=== PATIENT | female | born 1960 | race Caucasian/White ===

== ENCOUNTER → 2017-02-03 | Outpatient (CLI) | payer OTHER ==
--- NOTE | 2017-02-03 11:25 | REP ---
Chest two views HISTORY: Cough Comparison: None Calcified granuloma are present in the lungs. The heart is normal in size. The pulmonary vasculature is normal in appearance. The bony structure is intact. IMPRESSION: Old granulomatous disease.
== END ==
LOC: M CLY 10:35
PROVIDERS: ATTEND Family Medicine
DX: R05 Cough (principal); R07.9 Chest pain, unspecified; J98.4 Other disorders of lung

== ENCOUNTER → 2017-04-17 | Outpatient (REF) | payer MEDICAID ==
[2017-04-18 13:28] LABS: ALBUMIN 4.1 GM/DL (3.2-5.2); ALBUMIN/GLOBULIN RATIO 1.32 (1.00-1.93); BILIRUBIN,TOTAL 0.5 MG/DL (0.2-1.0); CALCIUM LEVEL 9.3 MG/DL (8.5-10.1); CREATININE FOR GFR 1.14 MG/DL (0.55-1.02); GLOMERULAR FILTRATION RATE 52.7 (>51); POTASSIUM SERUM 4.3 MEQ/L (3.5-5.1); TOTAL PROTEIN 7.2 GM/DL (6.4-8.2)
== END ==
LOC: M SFHCCLAY 14:11
PROVIDERS: ATTEND Family Medicine
DX: R73.01 Impaired fasting glucose (principal)

== ENCOUNTER → 2018-05-07 | Outpatient (REF) | payer OTHER ==
[2018-05-08 12:14] LABS: ALBUMIN 4.1 GM/DL (3.2-5.2); ALBUMIN/GLOBULIN RATIO 1.21 (1.00-1.93); ALKALINE PHOSPHATASE 86 U/L (45-117); ALT/SGPT 16 U/L (12-78); ANION GAP 5 MEQ/L (8-16); AST/SGOT 13 U/L (7-37); BILIRUBIN,TOTAL 0.5 MG/DL (0.2-1.0); BLOOD UREA NITROGEN 11 MG/DL (7-18); CALCIUM LEVEL 9.2 MG/DL (8.5-10.1); CARBON DIOXIDE LEVEL 30 MEQ/L (21-32); CHLORIDE LEVEL 107 MEQ/L (98-107); CREATININE FOR GFR 1.16 MG/DL (0.55-1.30); GLOMERULAR FILTRATION RATE 51.4 (>51); GLUCOSE, FASTING 110 MG/DL (70-100); POTASSIUM SERUM 4.8 MEQ/L (3.5-5.1); SODIUM LEVEL 142 MEQ/L (136-145); TOTAL PROTEIN 7.5 GM/DL (6.4-8.2)
[2018-05-08 13:27] LABS: ESTIMATED AVERAGE GLUCOSE 123 MG/DL (60-110); HEMOGLOBIN A1c 5.9 %
== END ==
LOC: M SFHCCLAY 14:56
DX: I10 Essential (primary) hypertension (principal)

== ENCOUNTER → 2018-09-08 | Outpatient (REF) | LOC: M SMT 13:02 | DX: Z02.71 Encounter for disability determination (principal) ==

== ENCOUNTER → 2018-11-23 | Outpatient (REF) | payer OTHER ==
[2018-11-24 11:27] LABS: ALBUMIN 4.1 GM/DL (3.2-5.2); BILIRUBIN,TOTAL 0.3 MG/DL (0.2-1.0); CHOLESTEROL RISK RATIO 4.666 (<5); CREATININE FOR GFR 1.15 MG/DL (0.55-1.30); GLOMERULAR FILTRATION RATE 51.8 (>51); POTASSIUM SERUM 4.4 MEQ/L (3.5-5.1); TOTAL PROTEIN 7.1 GM/DL (6.4-8.2)
[2018-11-24 11:56] LABS: HEMOGLOBIN A1c 5.8 %
== END ==
LOC: M SFHCCLAY 14:00
PROVIDERS: ATTEND Family Medicine
DX: E78.2 Mixed hyperlipidemia (principal); R73.01 Impaired fasting glucose

== ENCOUNTER → 2018-12-31 | Outpatient (REF) | payer OTHER ==
[2018-12-31 16:04] LABS: APPEARANCE, URINE HAZY (CLEAR); BACTERIA, URINE AUTO 1+ (NEGATIVE); BILIRUBIN, URINE AUTO NEGATIVE (NEGATIVE); BLOOD, URINE BLOOD 1+ (NEGATIVE); COLOR, URINE YELLOW (YELLOW); GLUCOSE, URINE (UA) AUTO NEGATIVE (NEGATIVE); KETONE, URINE AUTO NEGATIVE (NEGATIVE); LEUKOCYTE ESTERASE, URINE AUTO NEGATIVE (NEGATIVE); MUCUS, URINE SMALL (NEGATIVE); NITRITE, URINE AUTO NEGATIVE (NEGATIVE); PROTEIN, URINE AUTO NEGATIVE (NEGATIVE); RBC, URINE AUTO 2 /HPF (0-3); SPECIFIC GRAVITY URINE AUTO 1.013 (1.002-1.035); SQUAMOUS EPITHELIAL CELL UR AU 3 /HPF (0-6); UROBILINOGEN, URINE AUTO 0.2 mg/dL (0.0-2.0); WBC, URINE AUTO 0 /HPF (0-3)
[2018-12-31 16:05] LABS: BASO # 0.1 10^3/uL (0.0-0.2); BASO % 1.2 % (0.0-1.0); EOS # 0.4 10^3/uL (0.0-0.50); EOS % 4.8 % (0.0-3.0); HEMATOCRIT 44.2 % (36.0-47.0); HEMOGLOBIN 14.6 g/dl (12.0-15.5); LYMPH % 27.2 % (24.0-44.0); MEAN CORPUSCULAR HEMOGLOBIN 30.6 pg (27.0-33.0); MEAN CORPUSCULAR VOLUME 92.7 fl (80.0-96.0); MONO # 0.4 10^3/uL (0.0-0.8); NEUTROPHILS # 4.5 10^3/uL (1.8-7.7); NEUTROPHILS % 61.4 % (36.0-66.0); PLATELET COUNT, AUTOMATED 271 10^3/uL (150-450); RED BLOOD COUNT 4.77 10^6/uL (4.00-5.40); WHITE BLOOD COUNT 7.4 10^3/uL (4.0-10.0)
[2018-12-31 16:25] LABS: ERYTHROCYTE SEDIMENTATION RATE 16 mm/hr (0-30)
[2018-12-31 16:26] LABS: COMPLEMENT C3 123 MG/DL (90-180); COMPLEMENT C4 24 MG/DL (10-40)
[2019-01-02 14:38] LABS: ANTI DOUBLE STRAND-DNA AB 1 IU/mL (0-9); RNP ANTIBODY 0.6 AI (0.0-0.9); SMITHS ANTIBODY < 0.2 AI (0.0-0.9); SSA SJOGRENS A <0.2 AI (0.0-0.9); SSB SJOGRENS B <0.2 AI (0.0-0.9)
[2019-01-03 00:06] LABS: ANA (HEP2) Negative (.)
== END ==
LOC: M SFHCPLAZ 14:22
PROVIDERS: ATTEND Internal Medicine Rheumatology
DX: L93.0 Discoid lupus erythematosus (principal)

== ENCOUNTER → 2019-05-05 | Outpatient (REF) | payer OTHER | LOC: M SFHCPLAZ 17:00 | PROVIDERS: ATTEND Dermatology | DX: R21 Rash and other nonspecific skin eruption (principal) ==

== ENCOUNTER → 2019-06-14 | Outpatient (REF) | payer OTHER ==
[2019-06-15 11:41] LABS: ALBUMIN 4.1 GM/DL (3.2-5.2); BILIRUBIN,TOTAL 0.4 MG/DL (0.2-1.0); CALCIUM LEVEL 9.2 MG/DL (8.5-10.1); CREATININE FOR GFR 1.12 MG/DL (0.55-1.30); GLOMERULAR FILTRATION RATE 53.4 (>51); TOTAL PROTEIN 7.1 GM/DL (6.4-8.2)
[2019-06-15 12:05] LABS: HEMOGLOBIN A1c 6.1 %
== END ==
LOC: M SFHCCLAY 15:08
PROVIDERS: ATTEND Family Medicine
DX: I10 Essential (primary) hypertension (principal); E78.2 Mixed hyperlipidemia; R73.01 Impaired fasting glucose

== ENCOUNTER → 2019-10-15 | Outpatient (CLI) | payer OTHER ==
--- NOTE | 2019-10-15 18:26 | REP ---
REASON: Cough. COMPARISON: 02/03/2017 FINDINGS: The superior mediastinal structures are midline. The cardiac silhouette is unremarkable in size, shape, and position. The diaphragmatic surfaces of the lungs are regular, and the costophrenic angles are clear. The pulmonary fitch are clear. The imaged osseous structures are intact. IMPRESSION: There is no acute cardiopulmonary disease. No significant change from the prior exam. Electronically Signed by Moreno Escalera DO 10/18/2019 01:13 P
== END ==
LOC: M CLY 14:27
PROVIDERS: ATTEND Family Medicine
DX: R05 Cough (principal)

== ENCOUNTER 2020-09-05 16:37 | Inpatient (IN) | payer OTHER ==
[~2020-09-05] VITALS: Ht 167.6 cm; Wt 80.7 kg
[2020-09-05] MEDS ORDERED: LISI-538 PO ×3 (16:58→22:35)
[2020-09-05] MEDS ORDERED: ATOR1TAB21 PO ×2 (16:58→22:35)
[2020-09-05] MEDS ORDERED: PANT40TA29 PO (16:58)
[2020-09-05] MEDS ORDERED: ADVA230A INH ×2 (16:58→22:35)
[2020-09-05] MEDS ORDERED: TRAM50TA2 PO ×2 (16:58→22:35)
[2020-09-05] MEDS ORDERED: CYCL-707 PO ×2 (16:58→22:35)
[2020-09-05] MEDS ORDERED: ALBU8.5H INH (16:58)
--- NOTE | 2020-09-05 18:03 | REP ---
INDICATION: CHEST PAIN. COMPARISON: . TECHNIQUE: Single frontal portable view of the chest is performed. FINDINGS: No acute infiltrate is seen. Heart is not enlarged. There is mild calcification of the thoracic aorta. The mediastinal silhouette is otherwise unremarkable. A tiny calcified granuloma seen in the left upper lobe, unchanged. IMPRESSION: No acute pulmonary disease. <Electronically signed by Shashi Eason > 09/05/20 [id number]
[2020-09-05 18:29] LABS: BASO # 0.1 10^3/uL (0.0-0.2); EOS # 0.2 10^3/uL (0.0-0.5); EOS % 1.7 % (0.0-3.0); HEMATOCRIT 46.8 % (36.0-47.0); LYMPH # 1.5 10^3/uL (1.5-5.0); LYMPH % 15.9 % (24.0-44.0); MEAN CORPUSCULAR HEMOGLOBIN 29.4 pg (27.0-33.0); MEAN CORPUSCULAR HGB CONC 32.1 g/dl (32.0-36.5); MEAN CORPUSCULAR VOLUME 91.6 fl (80.0-96.0); MONO # 0.3 10^3/uL (0.0-0.8); MONO % 3.4 % (0.0-5.0); NEUTROPHILS # 7.3 10^3/uL (1.5-8.5); NEUTROPHILS % 77.6 % (36.0-66.0); PLATELET COUNT, AUTOMATED 299 10^3/uL (150-450); RED BLOOD COUNT 5.11 10^6/uL (4.00-5.40); WHITE BLOOD COUNT 9.4 10^3/uL (4.0-10.0)
[2020-09-05] MEDS ORDERED: CHLO125TA PO (18:43)
[2020-09-05] MEDS ORDERED: SPIR-10 PO (18:44)
[2020-09-05] MEDS ORDERED: FUROSEMIDE 40MG/4ML VIAL (J1940) IV ONE (18:45)
[2020-09-05] MEDS ORDERED: lisinopriL 20 MG TAB PO ONE (18:45)
--- NOTE | 2020-09-05 18:49 | REPVR ---
PROCEDURE INFORMATION: Exam: CT Head Without Contrast Exam date and time: 09/05/2020 6:19 PM Age: 60 years old Clinical indication: Pain; Headache; Additional info: COHEN w HTN TECHNIQUE: Imaging protocol: Computed tomography of the head without contrast. Radiation optimization: All CT scans at this facility use at least one of these dose optimization techniques: automated exposure control; mA and/or kV adjustment per patient size (includes targeted exams where dose is matched to clinical indication); or iterative reconstruction. COMPARISON: No relevant prior studies available. FINDINGS: Brain: Mild cerebral and cerebellar volume loss. No hemorrhage or edema seen. Cerebral ventricles: No ventriculomegaly. Bones/joints: Unremarkable. No acute fracture. Paranasal sinuses: Visualized sinuses are unremarkable. No fluid levels. Mastoid air cells: Visualized mastoid air cells are well aerated. Soft tissues: Unremarkable. IMPRESSION: No acute intracranial abnormality seen. Electronically signed by: Yaritza Cabrera On 09/05/2020 18:48:34 PM
[2020-09-05 18:55] LABS: ALBUMIN 4.6 GM/DL (3.2-5.2); ALT/SGPT 15 U/L (12-78); BILIRUBIN,DIRECT < 0.1 MG/DL (0.0-0.2); BILIRUBIN,TOTAL 0.3 MG/DL (0.2-1.0); FREE T4 1.18 NG/DL (0.76-1.46); TOTAL PROTEIN 8.2 GM/DL (6.4-8.2)
[2020-09-05] MEDS ORDERED: amLODIPine 10 MG TAB PO ONE (20:30)
[2020-09-05] MEDS ORDERED: diazePAM 2 MG TAB PO ONE (22:15)
[2020-09-05] MEDS ORDERED: DIAZ5TAB PO (22:35)
[2020-09-05] MEDS ORDERED: PROAAER10 INH (22:35)
[2020-09-05] MEDS ORDERED: PANT-23 PO (22:35)
[2020-09-05] MEDS ORDERED: CYCLOBENZAPRINE 10MG TABLET PO PRN (22:45)
[2020-09-05] MEDS ORDERED: traMADol 50 MG TAB PO PRN (22:45)
[2020-09-05] MEDS ORDERED: ALBUTEROL 90 MCG/ACT 8GM HFA INHALER INH PRN (22:45)
[2020-09-05] MEDS ORDERED: diazePAM 5 MG TAB PO PRN (22:45)
[2020-09-05] MEDS ORDERED: NICOTINE 21MG/24HR 1 EA TRANSDERMAL TD PRN (23:30)
--- NOTE | 2020-09-05 23:31 | HPEPDOC ---
[facility] Medical History & Physical Date of Admission Sep 05, 2020 Date of Service: Sep 05, 2020 Primary Care Physician: Zack Zapien Attending Physician: KATALINA ESCAMILLA MD History and Physical CHIEF COMPLAINT: Head pressure and elevated blood pressure HISTORY OF PRESENT ILLNESS: Patient is a 60-year-old female who presents to the emergency department after she checked her blood pressure earlier this morning and found to be elevated. Patient states that she was feeling ill over the past day and decided to take her blood pressure. Patient reports her blood pressure was over 190/110. She decided to come to the emergency department for further evaluation. Patient says that she's had some head pressure for last 5 days that had actually resolved prior to her coming to the emergency department. In the emergency department, patient's blood pressure was found to be quite elevated. Cardiology was contacted and advised that she begin her lisinopril as well as a dose of IV Lasix. Patient's blood pressure still remained elevated and cardiology was called back. Patient was given amlodipine 10 mg. Patient's blood pressure still did not respond and was still 190/110. Hospitalists were contacted for admission for further blood pressure management and workup. Patient says that she feels slightly better however, she was eating a bowl mac & cheese but said that she did not feel very hungry. Patient denies any nausea or any vomiting just feels like she has no appetite. Patient denies any headache, blurry vision, dizziness, or any weakness or numbness in her limbs. PAST MEDICAL HISTORY: 1. Hypertension. 2. Anxiety. 3. GERD. 4. COPD 5. Discoid lupus 6. Hyperlipidemia PAST SURGICAL HISTORY: 1. Transvaginal hysterectomy. SOCIAL HISTORY: Patient admits to smoking about 15 cigarettes a day. Patient used to smoke 2 packs of cigarettes a day but has steadily decreased that number. Patient denies any drinking or illicit drug use. Patient does have a very remote history of IV drug use and was diagnosed with hepatitis C which she says was treated. Patient currently lives at home with her son and grandkids. 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 ALLERGIES: Please see below. REVIEW OF SYSTEMS: General: Patient denies fevers HEENT: Patient denies headaches Cardiovascular: Patient denies chest pain Respiratory: Patient denies shortness of breath, cough GI: Patient denies abdominal pain, nausea, vomiting, diarrhea : Patient denies increased frequency or pain with urination Extremities: Patient denies swelling or pain in extremities Neurological: Patient denies numbness or tingling in legs Skin: Patient denies any new rashes or lesions. Hematologic: Patient denies any easy bruising. Lymphatic: Patient denies any lumps lumps or bumps in neck, axilla, or groin HOME MEDICATIONS: Please see below. PHYSICAL EXAMINATION: VITAL SIGNS: See below General: Alert and oriented female patient who was sitting up on the emergency department stretcher when I walked into the room. Patient did not appear to be in any acute distress HEENT: Normocephalic, atraumatic, moist mucous membranes. Neck: No lymphadenopathy or thyromegaly Cardiac: Regular rate and rhythm, no murmurs, normal S1, normal S2 Pulm: Clear to auscultation bilaterally. No wheezes, rhonchi, rales Abd: Nondistended, nontender to palpation, normal bowel sounds Ext: No edema bilateral lower extremities Skin: Patient does have some hyperkeratotic skin in the upper thoracic area as well as some dry skin with excoriations at the thoracic lumbar junction. No other rashes were seen. LABORATORY DATA: See below. IMAGING: A chest x-ray performed on 09/05/2020 was reported to show no acute pulmonary disease. A CT the head performed without contrast on 09/05/2020 was reported to show no a cute intracranial abnormality seen. MICROBIOLOGY: Please see below. ASSESSMENT: Patient is a 60-year-old female who presented to the emergency department after taking her blood pressure this morning finding it to be elevated. Patient does not appear to have any signs of end organ damage at this time however, her blood pressure still remained elevated after treatment. . PLAN: 1. Hypertensive urgency. Patient was given 20 mg lisinopril, 10 mg of amlodipine and 40 mg of IV Lasix and this did not lower her blood pressure. Beta blockers were not initially given in the emergency department as patient was bradycardic. Patient's heart rate has increased. Patient will continue on lisinopril 20 mg and amlodipine 10 mg. Beta richy or thiazide can be added if still unable to control blood pressure. Patient also has anxiety which she's been given her diazepam 4. We'll continue to monitor her blood pressure. Serum renin and aldosterone levels have been ordered for the morning. Renal ultrasound and renal artery Doppler has been ordered as well. Hydralazine ordered for SBP greater than 180. We will continue to monitor the patient at this time. 2. Generalized anxiety disorder. Continue the patient's diazepam. 3. Nicotine dependence. Nicotine patch has been ordered. Patient says that the fact that she couldn't get a cigarette while she is in the ED was making her anxiety worse. I did offer her a nicotine patch but she initially declined but I had offered to make it an as needed order just in case it should one later on and she was okay with that. 4. DVT prophylaxis: Lovenox. 5. CODE STATUS full code Vital Signs Vital Signs Date Time Temp Pulse Resp B/P (MAP) Pulse Ox O2 Delivery O2 Flow Rate FiO2 09/05/20 22:21 190/110 (136) 09/05/20 20:49 73 18 97 Room Air 09/05/20 19:01 98.2 Laboratory Data Labs 24H Laboratory Tests 2 09/05/20 17:59: Immature Granulocyte % (Auto) 0.4, Neutrophils (%) (Auto) 77.6H, Lymphocytes (%) (Auto) 15.9L, Monocytes (%) (Auto) 3.4, Eosinophils (%) (Auto) 1.7, Basophils (%) (Auto) 1.0, Neutrophils # (Auto) 7.3, Lymphocytes # (Auto) 1.5, Monocytes # (Auto) 0.3, Eosinophils # (Auto) 0.2, Basophils # (Auto) 0.1, Nucleated Red Bloo d Cells % (auto) 0.0, Total Bilirubin 0.3, Direct Bilirubin < 0.1, Aspartate Amino Transf (AST/SGOT) 12, Alanine Aminotransferase (ALT/SGPT) 15, Alkaline Phosphatase 80, Total Protein 8.2, Albumin 4.6, Albumin/Globulin Ratio 1.3, Thyroid Stimulating Hormone (TSH) 2.330, Free Thyroxine 1.18 CBC/BMP Laboratory Tests 09/05/20 17:59 Home Medications Scheduled Atorvastatin Calcium (Atorvastatin Calcium) 20 Mg Tablet, 20 MG PO DAILY Fluticasone Propion/Salmeterol (Advair Hfa 230-21 Mcg Inhaler) 12 Gm Hfa.aer.ad, 2 PUFF INH BID Lisinopril (Lisinopril) 20 Mg Tablet, 20 MG PO DAILY Pantoprazole Sodium (Pantoprazole Sodium) 40 Mg Tablet.dr, 40 MG PO DAILY Scheduled PRN Albuterol Sulfate (Proair Hfa) 8.5 Gm Hfa.aer.ad, 2 PUFF INH Q4H PRN for SHORTNE SS OF BREATH Cyclobenzaprine HCl (Cyclobenzaprine HCl) 10 Mg Tablet, 10 MG PO TID PRN for MUSCLE SPASMS Diazepam (Diazepam) 5 Mg Tablet, 5 MG PO BID PRN for ANXIETY Tramadol HCl (Tramadol HCl) 50 Mg Tablet, 50 MG PO BID PRN for PAIN Allergies Coded Allergies: codeine (Verified Adverse Reaction, Mild, vomiting., 09/05/20) A-FIB/CHADSVASC A-FIB History Current/History of A-Fib/PAF?: No GME ATTESTATION GME ATTESTATION My faculty preceptor for this patient encounter was physically present during the encounter and was fully available. All aspects of the patient interview, examination, medical decision making process, and medical care plan development were reviewed and approved by the faculty preceptor. The faculty preceptor is aware and concurs with the plan as stated in the body of this note and will attest to such by his/her cosignature. ATTENDING NOTE IBree, have independently examined this patient and performed my own physical exam, as well as reviewed the documentation and edited where necessary. I have discussed in detail with the resident / student the findings and plan of treatment as documented by the resident / student and edited their note. I agree with their findings and treatment plan and have edited their documentation. I will continue to follow the patient during this hospital stay. HUYEN CANTU DO Sep 05, 2020 23:31 KATALINA ESCAMILLA MD Sep 06, 2020 00:54
[2020-09-06] VITALS (7 sets, daily range): BP systolic 158–192; BP diastolic 76–104
[2020-09-06] MEDS ORDERED: hydrALAZINE 20MG/ML 1ML VIAL (J0360 PER 20MG) As Ordered ONE (00:10)
[2020-09-06] MEDS: hydrALAZINE 20MG/ML 1ML VIAL (J0360 PER 20MG) IV SCH ×3 (00:18→16:00)
[2020-09-06] MEDS: ACETAMINOPHEN TAB 650MG DOSE (2X325MG) PO PRN ×3 (02:58→16:12)
[2020-09-06] MEDS ORDERED: hydroCHLOROthiazide 12.5 MG CAPSULE PO SCH (03:00)
[2020-09-06 05:59] LABS: BASO # 0.1 10^3/uL (0.0-0.2); BASO % 0.6 % (0.0-1.0); EOS # 0.1 10^3/uL (0.0-0.5); EOS % 0.8 % (0.0-3.0); HEMOGLOBIN 15.3 g/dl (12.0-15.5); LYMPH % 20.5 % (24.0-44.0); MEAN CORPUSCULAR HEMOGLOBIN 29.5 pg (27.0-33.0); MEAN CORPUSCULAR HGB CONC 32.6 g/dl (32.0-36.5); MEAN CORPUSCULAR VOLUME 90.6 fl (80.0-96.0); MONO # 0.5 10^3/uL (0.0-0.8); MONO % 5.1 % (0.0-5.0); NEUTROPHILS # 6.9 10^3/uL (1.5-8.5); NEUTROPHILS % 72.6 % (36.0-66.0); PLATELET COUNT, AUTOMATED 303 10^3/uL (150-450); RED BLOOD COUNT 5.19 10^6/uL (4.00-5.40); WHITE BLOOD COUNT 9.5 10^3/uL (4.0-10.0)
[2020-09-06 06:25] LABS: BLOOD UREA NITROGEN 11 MG/DL (7-18); CALCIUM LEVEL 10.2 MG/DL (8.5-10.1); CARBON DIOXIDE LEVEL 28 MEQ/L (21-32); CHLORIDE LEVEL 104 MEQ/L (98-107); CK-MB VALUE MASS 1.8 NG/ML (<3.6); CPK CREATINE PHOSPHOKINASE 134 U/L (26-192); GLOMERULAR FILTRATION RATE > 60.0 (>51); GLUCOSE, FASTING 114 MG/DL (70-100); MAGNESIUM LEVEL 2.1 MG/DL (1.8-2.4); MB/CK RELATIVE INDEX 1.34 (< OR =4); POTASSIUM SERUM 3.5 MEQ/L (3.5-5.1); SODIUM LEVEL 139 MEQ/L (136-145); TROPONIN I < 0.02 NG/ML (< 0.10)
[2020-09-06] MEDS: ADVAIR HFA 230/21MCG INHALER INH SCH ×2 (07:41→19:40)
[2020-09-06] MEDS: ATORVASTATIN 20 MG TAB PO SCH (08:28)
[2020-09-06] MEDS: ENOXAPARIN 40MG/0.4ML SYRINGE (J1650 PER 10MG) SC SCH (08:29)
[2020-09-06] MEDS: amLODIPine 10 MG TAB PO SCH (08:29)
[2020-09-06] MEDS: PANTOPRAZOLE 40MG TAB (PROTONIX) PO SCH (08:29)
[2020-09-06] MEDS ORDERED: lisinopriL 20 MG TAB PO SCH (09:00)
[2020-09-06] MEDS ORDERED: METOCLOPRAMIDE INJ 10MG/2ML VIAL (J2765 PER 1) IV ONE (09:30)
[2020-09-06] MEDS ORDERED: SLF 3 ML SYR IV PRN (10:30)
[2020-09-06] MEDS: SLF 3 ML SYR IV SCH ×2 (10:57→21:10)
[2020-09-06 13:42] LABS: CK-MB VALUE MASS 1.8 NG/ML (<3.6); CPK CREATINE PHOSPHOKINASE 154 U/L (26-192); MB/CK RELATIVE INDEX 1.17 (< OR =4); TROPONIN I < 0.02 NG/ML (< 0.10)
--- NOTE | 2020-09-06 14:00 | REP ---
INDICATION: Severe hypertension. Urinary tract sonography with renal artery Doppler assessment. COMPARISON: None. TECHNIQUE: Morphologic urinary tract sonography is performed the two-dimensional scanning. Renal artery Doppler flow study is acquired as well. FINDINGS: Scanning at the level of the urinary bladder shows no abnormality. Renal cortical echogenicity pattern is normal bilaterally and contours are smooth. There is a parapelvic cyst in the right kidney measuring 1.7 x 1.4 x 1.3 cm. No other cyst or mass is seen.. The right kidney measures 9.8 x 4.6 x 3.6 cm. Left renal dimensions are 9.3 x 3.9 x 4.0 cm. Renal artery Doppler study: Peak systolic flow velocity in the abdominal aorta at the level of main renal arteries is normal, recorded at 53 centimeters/second. Peak systolic flow velocity in the left main renal artery is recorded at 149 centimeters/second and that in the right at 143 cm per 2nd. Renal to aortic flow velocity ratios is therefore borderline elevated, 2.7 on the right and 2.8 on the left. Resistive indices and acceleration times are measured in the upper, mid, and lower pole intralobar arteries bilaterally. These values are normal. IMPRESSION: Small parapelvic cyst on the right. Otherwise morphologically normal urinary tract sonography. Borderline elevated renal to aortic flow velocity ratios. Cannot exclude bilateral renal artery stenosis. <Electronically signed by Fidel Ghosh > 09/06/20 [id number]
[2020-09-06] MEDS: hydroCHLOROthiazide 12.5 MG CAPSULE PO SCH (16:08)
--- NOTE | 2020-09-06 16:16 | IPNPDOC ---
Text Note Date of Service The patient was seen on 09/06/20. NOTE Subjective: Patient seen at bed side on 09/06/2020. She reports having right sided headache which was present since like 5 days on and off. She denies having nausea, vomiting, chest pain, abdominal pain. She reports having loss of appetite and don't feel like eating since admission in hospital she was eating well at home. Objective: General: Patient is awake, alert, oriented times three, sitting in chair/on bed , no apparent distress. Eyes: Conjunctiva clear, pupils equal round and reactive to light. ENT: Hearing Bilateral normal. No nasal deviation, oropharynx clear with no lesions/erythema. Cardiovascular: S1, S2, normal rhythm, no murmur, rub, or gallop. Respiratory: Chest is clear to auscultation bilaterally, No rhonchi, wheezes or rubs. Abdomen: Soft, bowel sounds positive, no bruits. No tenderness on palpation. Extremities: No clubbing or cyanosis. No edema, no tenderness. Spine: No kyphosis, no paraspinal tenderness, no costovertebral tenderness. Central nervous system (STITCHER FEEDER): Awake, alert and fully oriented. . Skin: Noted a hyperkeratotic and dry skin with excoriation on her back in the left trapezius area. 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 Imaging: chest x-ray: 09/05/2020, reported as no acute pulmonary disease. CT the head without contrast: 09/05/2020, reported as no acute intracranial abnormality seen. Assessment: Mrs. Palafox is a 60-year-old female patient who presented to the emergency department with elevated blood pressure at home. In the ED she had a highest blood pressure of 227/88mm Hg. In the ED she was treated with amlodipine 10mg, lisinopril 20mg, Lasix 40mg She was still high and was admitted to hospital for further management. After admission she was continued on Amlodipine and lisinopril and was also given a dose of hydralazine with holding parameters of >180 systolic. Plan: 1. Hypertensive urgency: - Her blood pressure was consistently in 150-160s systolic. - Will increase her lisinopril to 40mg, as she already got her morning dose of 20mg lisinopril will give here 20mg more at bed time. - Will increase her hydrochlorothiazide to 12.5 mg BID. - Her renin and aldosterone are still pending, As she is taking lisinopril at home, expect the values to be abnormal. - Her renal Doppler USG and reported as small paraplevic cyst on right. Borderline elevated renal to aortic flow velocity ratios. Cannot exclude bilateral renal artery stenosis. Patient is already on 3 blood pressure medication will monitor her blood pressure overnight. - Will get a UA to look for proteinuria and RBC. 2. Generalized anxiety disorder: - will continue diazepam. 3. Nicotine dependence: - will continue nicotine patch. 4. DVT prophylaxis: - Lovenox. Disposition: will monitor patient blood pressure overnight and based upon how she does tonight will decide her discharge plan. VS,Fishbone, I+O VS, Fishbone, I+O Laboratory Tests 09/05/20 17:59 09/06/20 05:20 Vital Signs Date Time Temp Pulse Resp B/P (MAP) Pulse Ox O2 Delivery O2 Flow Rate FiO2 09/06/20 08:29 80 160/90 09/06/20 08:00 97.4 18 97 Room Air I&O- Last 24 Hours up to 6 AM 09/06/20 06:00 Intake Total 60 ml Output Total 500 ml Balance -440 ml GME ATTESTATION GME ATTESTATION My faculty preceptor for this patient encounter was physically present during the encounter and was fully available. All aspects of the patient interview, examination, medical decision making process, and medical care plan development were reviewed and approved by the faculty preceptor. The faculty preceptor is aware and concurs with the plan as stated in the body of this note and will attest to such by his/her cosignature. ATTENDING NOTE Patient was seen and examined by me personally with the residents/students. I agree with the above assessment and plan Tha Richard MD Sep 06, 2020 11:49 REHANA AARON MD Sep 11, 2020 11:41
[2020-09-06] MEDS ORDERED: lisinopriL 20 MG TAB PO ONE (21:00)
[2020-09-06] MEDS ORDERED: lisinopriL 40 MG TAB PO SCH (21:00)
[2020-09-07] VITALS: BP 158/90
[2020-09-07 04:00] VITALS: BP 144/80
[2020-09-07] MEDS: SLF 3 ML SYR IV SCH (05:00)
[2020-09-07 06:01] LABS: BASO # 0.1 10^3/uL (0.0-0.2); BASO % 1.1 % (0.0-1.0); EOS # 0.2 10^3/uL (0.0-0.5); EOS % 2.4 % (0.0-3.0); HEMOGLOBIN 14.9 g/dl (12.0-15.5); LYMPH # 2.1 10^3/uL (1.5-5.0); LYMPH % 26.6 % (24.0-44.0); MEAN CORPUSCULAR HGB CONC 33.1 g/dl (32.0-36.5); MEAN CORPUSCULAR VOLUME 90.5 fl (80.0-96.0); MONO # 0.6 10^3/uL (0.0-0.8); MONO % 7.7 % (0.0-5.0); NEUTROPHILS # 4.9 10^3/uL (1.5-8.5); NEUTROPHILS % 61.9 % (36.0-66.0); PLATELET COUNT, AUTOMATED 293 10^3/uL (150-450); RED BLOOD COUNT 4.97 10^6/uL (4.00-5.40); WHITE BLOOD COUNT 7.9 10^3/uL (4.0-10.0)
[2020-09-07 06:31] LABS: CALCIUM LEVEL 9.3 MG/DL (8.5-10.1); CREATININE FOR GFR 1.12 MG/DL (0.55-1.30); MAGNESIUM LEVEL 2.1 MG/DL (1.8-2.4); POTASSIUM SERUM 3.4 MEQ/L (3.5-5.1)
[2020-09-07] MEDS ORDERED: POTASSIUM CHLORIDE 10 MEQ SR TABLET PO ONE (07:15)
[2020-09-07] MEDS: ADVAIR HFA 230/21MCG INHALER INH SCH (07:26)
[2020-09-07 08:00] VITALS: BP 143/71
[2020-09-07] MEDS: hydrALAZINE 20MG/ML 1ML VIAL (J0360 PER 20MG) IV SCH ×2 (08:00)
[2020-09-07 08:21] VITALS: BP 143/71
[2020-09-07] MEDS: amLODIPine 10 MG TAB PO SCH (08:21)
[2020-09-07] MEDS: PANTOPRAZOLE 40MG TAB (PROTONIX) PO SCH (08:21)
[2020-09-07] MEDS: ATORVASTATIN 20 MG TAB PO SCH (08:21)
[2020-09-07] MEDS: hydroCHLOROthiazide 12.5 MG CAPSULE PO SCH (08:22)
[2020-09-07] MEDS: ENOXAPARIN 40MG/0.4ML SYRINGE (J1650 PER 10MG) SC SCH (08:25)
--- NOTE | 2020-09-07 10:17 | DS.PDOC ---
Discharge Summary General Date of Admission Sep 05, 2020 at 22:20 Date of Discharge Sep 06, 2020 Primary Care Physician: Zack Zapien Attending Physician: REHANA AARON MD Discharge Summary PROCEDURES PERFORMED DURING STAY: None. ADMITTING DIAGNOSES: 1. Hypertensive emergency 2. Anxiety 3. Cutaneous lupus 4. GERD 5. COPD 6. Dyslipidemia DISCHARGE DIAGNOSES: 1. Anxiety 2. Cutaneous lupus 3. GERD 4. COPD 5. Dyslipidemia COMPLICATIONS/CHIEF COMPLAINT: Hypertensive Emergency. HISTORY OF PRESENT ILLNESS: 60 year old female patient presented to ED after checking her blood pressure this morning and found to be elevated(190/110). She reports she was not feeling well since last 5 days, having pressure like headache and more towards her right side on and off. In the ED she was given lisinopril, IV Lasix and amlodipine after reaching out to cardiology. Beta blockers were not given in ED as she was bradycardic. She did not respond and these Meds and was admitted to hospital for further blood pressure management. HOSPITAL COURSE: Patient was admitted to hospital, she was initially continued on lisinopril and amlodipine and was given diazepam for her anxiety . She did feel better after that. Patients BP peaked to more then 180 systolic at one point was given one dose of hydralazine. Her bp came down with that. She was worked up for renal artery stenosis with renal Doppler and USG. She got lisinopril 20mg BID, hydrochlorothiazide 12.5mg BID and amlodipine 10mg PO over night and her blood pressure was in 140s. On the day of discharge pain had no complains and wanted to go home. She was instructed to follow up with PCP to get further imaging done to rule out renal artery stenosis. Spoke to Zack Rey regarding CTA abdomen, Patient is scheduled to see him on 09/11/2020 for post hospitalization follow up. DISCHARGE MEDICATIONS: Please see below. ALLERGIES: Please see below. PHYSICAL EXAMINATION ON DISCHARGE: VITAL SIGNS: Please see below. Objective: General: Patient is awake, alert, oriented times three, laying in bed, no apparent distress. Cardiovascular: S1, S2, normal rhythm, no murmur, rub, or gallop. Respiratory: Chest is clear to auscultation bilaterally, No rhonchi, wheezes or rubs. Abdomen: Soft, bowel sounds positive, no bruits. No tenderness on palpation. Extremities: No clubbing or cyanosis. No edema, no tenderness. Spine: No kyphosis, no paraspinal tenderness, no costovertebral tenderness. Central nervous system (GLOVE WRAPPER): Awake, alert and fully oriented. . Skin: Noted a hyperkeratotic and dry skin with excoriation on her back in the left trapezius area. 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 LABORATORY DATA: Please see below. IMAGING: Portable chest x-ray: 09/05/2020, reported as no acute pulmonary disease. CT head without contrast: 09/05/2020, reported as no acute intracranial abnormality. Renal ultrasound: 09/06/2020, reported as small parapelvic cyst on the right. Otherwise morphologically normal urinary tract sonogram. Borderline elevated renal to aortic flow velocity ratios. Cannot exclude bilateral renal artery stenosis. PROGNOSIS: Good ACTIVITY: As tolerated. DIET: 2 g sodium diet DISCHARGE PLAN: Discharge home with follow-up with PCP in 3-5 days DISPOSITION: going home. DISCHARGE INSTRUCTIONS: 1. Lisinopril 20 mg by mouth at bedtime daily. 2. Hydrochlorothiazide 12.5 mg by mouth twice a day. 3. Amlodipine 10 mg by mouth once daily. 4. Low salt diet, and exercise daily. 5. Follow-up with PCP in 3-5 days. Please follow up on BMP for electrolyte abnormalities and creatinine. If patients BMP is normal and her blood pressure is still high, consider increasing her lisinopril to 40mg PO at bed time. Patient needs a close follow up for EMILIE. She needs to get a abdominal CTA as her renal Doppler and USG reported as high velocities and cannot rule out B/L renal artery stenosis. Please schedule her for CTA abdomen . -- Already spoke to the PCP regarding her further imaging and she has a appointment schedule to see PCP on Friday09/11/2020 at 9AM. 6. Referral to rheumatology for follow-up on her cutaneous lupus. ITEMS TO FOLLOWUP ON ON OUTPATIENT: 1. Follow up with PCP in 3- 5days. Patient needs to get a abdominal CTA as her renal Doppler and USG reported bas high velocities and cannot rule out B/L renal artery stenosis. And her blood pressure was high even on 3 blood pressure medication. Please follow her kidney function outpatient. 2. Referral to rheumatology for her cutaneous lupus. DISCHARGE CONDITION: Stable. TIME SPENT ON DISCHARGE: Greater than 30 minutes. Vital Signs/I&Os Vital Signs Date Time Temp Pulse Resp B/P (MAP) Pulse Ox O2 Delivery O2 Flow Rate FiO2 09/07/20 08:21 80 143/71 09/07/20 08:00 96.9 20 92 Room Air I&O- Last 24 Hours up to 6 AM 09/07/20 06:00 Intake Total 540 ml Output Total 1100 ml Balance -560 ml Laboratory Data Labs 24H Laboratory Tests 2 09/06/20 12:46: Lab Scanned Report Miscellaneous Lab 09/06/20 12:50: Total Creatine Kinase 154, Creatine Kinase MB 1.8, Creatine Kinase MB Relative Index 1.17, Troponin I < 0.02 09/06/20 16:50: Urine Color YELLOW, Urine Appearance HAZY, Urine pH 5.0, Urine Specific [place] 1.008, Urine Protein NEGATIVE, Urine Glucose (UA) NEGATIVE, Urine Ketones NEGATIVE, Urine Blood 1+H, Urine Nitrite NEGATIVE, Urine Bilirubin NEGATIVE, Urine Urobilinogen 0.2, Urine Leukocyte Esterase NEGATIVE, Urine WBC (Auto) 1, Urine RBC (Auto) 3, Urine Hyaline Casts (Auto) 0, Urine Bacteria (Auto) 1+H, Urine Squamous Epithelial Cells 1, Urine Sperm (Auto) 09/07/20 05:35: Immature Granulocyte % (Auto) 0.3, Neutrophils (%) (Auto) 61.9, Lymphocytes (%) (Auto) 26.6, Monocytes (%) (Auto) 7.7H, Eosinophils (%) (Auto) 2.4, Basophils (%) (Auto) 1.1H, Neutrophils # (Auto) 4.9, Lymphocytes # (Auto) 2.1, Monocytes # (Auto) 0.6, Eosinophils # (Auto) 0.2, Basophils # (Auto) 0.1, Nucleated Red Blood Cells % (auto) 0.0, Anion Gap 8, Glomerular Filtration Rate 53.0, Calcium Level 9.3, Magnesium Level 2.1 CBC/BMP Laboratory Tests 09/07/20 05:35 Discharge Medications Scheduled Amlodipine Besylate (Amlodipine Besylate) 10 Mg Tablet, 10 MG PO DAILY for hypertension Atorvastatin Calcium (Atorvastatin Calcium) 20 Mg Tablet, 20 MG PO DAILY, (Reported) Fluticasone Propion/Salmeterol (Advair Hfa 230-21 Mcg Inhaler) 12 Gm Hfa.aer.ad, 2 PUFF INH BID, (Reported) Hydrochlorothiazide (Hydrochlorothiazide) 12.5 Mg Capsule, 12.5 MG PO BID for hypertension Lisinopril (Lisinopril) 20 Mg Tablet, 20 MG PO DAILY, (Reported) Pantoprazole Sodium (Pantoprazole Sodium) 40 Mg Tablet.dr, 40 MG PO DAILY, (Reported) Scheduled PRN Albuterol Sulfate (Proair Hfa) 8.5 Gm Hfa.aer.ad, 2 PUFF INH Q4H PRN for SHORTNESS OF BREATH, (Reported) Cyclobenzaprine HCl (Cyclobenzaprine HCl) 10 Mg Tablet, 10 MG PO TID PRN for MUSCLE SPASMS, (Reported) Diazepam (Diazepam) 5 Mg Tablet, 5 MG PO BID PRN for ANXIETY, (Reported) Tramadol HCl (Tramadol HCl) 50 Mg Tablet, 50 MG PO BID PRN for PAIN, (Reported) Allergies Coded Allergies: codeine (Verified Adverse Reaction, Mild, vomiting., 09/05/20) GME ATTESTATION GME ATTESTATION My faculty preceptor for this patient encounter was physically present during the encounter and was fully available. All aspects of the patient interview, examination, medical decision making process, and medical care plan development were reviewed and approved by the faculty preceptor. The faculty preceptor is aware and concurs with the plan as stated in the body of this note and will attest to such by his/her cosignature. ATTENDING NOTE Patient was seen and examined by me personally with the residents/students. I agree with the above assessment and plan Tha Richard MD Sep 07, 2020 09:15 REHANA AARON MD Sep 11, 2020 11:46
[2020-09-07] MEDS ORDERED: HYDR12CA PO (11:15)
[2020-09-07] MEDS ORDERED: AMLO1TAB25 PO (11:15)
[2020-09-07] MEDS ORDERED: lisinopriL 40 MG TAB PO SCH (21:00)
--- NOTE | 2020-09-08 08:50 | ECGEPIP ---
[facility] - ED Test Date: 2020-09-05 Pat Name: PATRICIA BINGHAM Department: Room: [place] [address] Gender: Female Specialist Icu: abiel : 1960 Requested By: Kole Kyle Order Number: [id number] Reading MD: Amara Rdz Measurements Intervals Mutual Rate: 56 P: 61 HI: 171 QRS: -33 QRSD: 90 T: 29 QT: 408 QTc: 394 Interpretive Statements SINUS BRADYCARDIA MARKED LEFT AXIS DEVIATION No prior Electronically Signed on 09-08-2020 8:49:57 EST by Amara Rdz
== END 2020-09-07 12:42 | disposition home or self-care (01) | DRG 199 ==
LOC: M ED 16:37 → M ED INP 22:20 → M PCU 23:34 → ENRESERV 23:43 → M ED INP 09-06 00:50 → M PCU 09-06 01:25
PROVIDERS: ADMIT Family Medicine; ATTEND Internal Medicine
DX: I16.0 Hypertensive urgency (principal); J44.9 Chronic obstructive pulmonary disease, unspecified; F41.1 Generalized anxiety disorder; F17.210 Nicotine dependence, cigarettes, uncomplicated; K21.9 Gastro-esophageal reflux disease without esophagitis; E78.5 Hyperlipidemia, unspecified; L93.0 Discoid lupus erythematosus; Z79.899 Other long term (current) drug therapy; Z88.5 Allergy status to narcotic agent

== ENCOUNTER → 2020-09-18 | Outpatient (CLI) | payer OTHER ==
[~2020-09-18] MED LIST: ADVA230A INH; ALBU8.5H INH; AMLO1TAB25 PO; ATOR1TAB21 PO; CHLO125TA PO; CYCL-707 PO; DIAZ5TAB PO; HYDR12CA PO; ISOVUE-370 76% 100ML VIAL As Ordered ONE; LISI-538 PO; PANT-23 PO; PANT40TA29 PO; PROAAER10 INH; SPIR-10 PO; TRAM50TA2 PO
--- NOTE | 2020-09-20 06:48 | REP ---
INDICATION: HYPERTENSION, RENAL ARTERYSTENOSIS. COMPARISON: None TECHNIQUE: Axial contrast-enhanced images from the lung bases to the pubic symphysis using 100 cc Isovue 370 intravenous contrast material using angiographic technique including coronal and sagittal reformations, MIP reformations, and volume rendered 3D images of the aorta and branch vessels. This CT examination was performed using the following dose reduction techniques: Automated exposure control, adjustment of mA and/or kv according to the patient's size, and the use of iterative reconstruction technique. FINDINGS: Angiographic evaluation demonstrates moderate to significant mixed atheromatous partially calcified plaquing along the visualized descending thoracic and abdominal aorta as well as the bilateral iliac arteries. There is no evidence for aortic aneurysm or dissection. The celiac axis, mesenteric artery, and solitary bilateral renal arteries appear patent and without evidence for stenosis or obstruction. Liver, spleen, pancreas, gallbladder, bilateral adrenal glands and kidneys are normal. Specifically, the kidneys demonstrate normal size and appearance with symmetric nephrograms and no evidence for vascular related atrophy or abnormality by CT evaluation. The enteric system is without obstruction or acute inflammatory process. Normal terminal ileum and appendix identified in the right lower quadrant. Sigmoid diverticulosis noted without acute diverticulitis. The stomach is under distended and gastric wall thickening cannot be evaluated or excluded. Pelvis demonstrates normal bladder and evidence for prior hysterectomy. No pelvic fluid or ascites. No free air. No adenopathy. Musculoskeletal structures demonstrate degenerative changes without acute osseous abnormality. Lung bases are relatively clear. IMPRESSION: 1. Moderate mixed atheromatous changes to the aorta and branch vessels. No evidence for aortic aneurysm/dissection, stenosis or obstruction involving the solitary bilateral renal arteries. 2. Diverticulosis without acute diverticulitis. <Electronically signed by Jake Reza > 09/20/20 [id number]
== END ==
LOC: M RAD 16:42
PROVIDERS: ATTEND Family Medicine
DX: I70.1 Atherosclerosis of renal artery (principal); I10 Essential (primary) hypertension
CPT/HCPCS: 74174; Q9967

== ENCOUNTER → 2020-12-04 | Outpatient (REF) | payer OTHER ==
[~2020-12-04] MED LIST changes: -ISOVUE-370 76% 100ML VIAL As Ordered ONE
[2020-12-05 12:26] LABS: BASO # 0.1 10^3/uL (0.0-0.2); BASO % 1.1 % (0.0-1.0); EOS # 0.3 10^3/uL (0.0-0.5); EOS % 3.7 % (0.0-3.0); HEMATOCRIT 44.7 % (36.0-47.0); HEMOGLOBIN 14.6 g/dl (12.0-15.5); LYMPH % 21.8 % (24.0-44.0); MEAN CORPUSCULAR HEMOGLOBIN 29.6 pg (27.0-33.0); MEAN CORPUSCULAR HGB CONC 32.7 g/dl (32.0-36.5); MEAN CORPUSCULAR VOLUME 90.5 fl (80.0-96.0); MONO # 0.5 10^3/uL (0.0-0.8); MONO % 5.1 % (0.0-5.0); NEUTROPHILS # 6.3 10^3/uL (1.5-8.5); NEUTROPHILS % 67.9 % (36.0-66.0); PLATELET COUNT, AUTOMATED 309 10^3/uL (150-450); RED BLOOD COUNT 4.94 10^6/uL (4.00-5.40); WHITE BLOOD COUNT 9.2 10^3/uL (4.0-10.0)
[2020-12-05 13:13] LABS: HEMOGLOBIN A1c 5.9 %
== END ==
LOC: M SFHCCLAY 16:01
PROVIDERS: ATTEND Family Medicine
DX: I10 Essential (primary) hypertension (principal); E78.2 Mixed hyperlipidemia; R73.01 Impaired fasting glucose

== ENCOUNTER → 2020-12-26 | Outpatient (CLI) | payer OTHER ==
[~2020-12-26] MED LIST changes: -LISI-538 PO; +LISI20TA33 PO
--- NOTE | 2020-12-26 15:12 | PFTRPT ---
Height: 66.00 Inches Weight: 182.00 Lbs BSA: 1.92 Diagnosis: J44.9 DATE: 12/26/2020 ORDERING PHYSICIAN: SHELLI Mistry Pre and post bronchodilator studies have excellent technical quality. Forced vital capacity is reduced. FEV1 is out of proportion. Obstructive index is therefore reduced. Expiratory limit of the flow-volume loop does suggest at least some degree of flow rate limitation. No significant bronchodilator response is identified. Total lung capacity is borderline elevated. Residual volume does not suggest a significant degree of air trapping. Diffusing capacity is reduced and does not correct for alveolar volume. Hemoglobin is acceptable at 13.3. Airway resistance and conductance are normal. IMPRESSION: At least a mild degree of underlying obstructive ventilatory impairment with diffusing capacity impairment. No bronchodilator response. Please correlate clinically. MTDD
== END ==
LOC: M CARPUL 14:27
PROVIDERS: ATTEND Physician Assistant
DX: J44.9 Chronic obstructive pulmonary disease, unspecified (principal)

== ENCOUNTER 2021-07-01 16:04 | Inpatient (IN) | payer MEDICARE, OTHER ==
[~2021-07-01] VITALS: Ht 167.6 cm; Wt 83.5 kg
[2021-07-01 18:16] LABS: BASO % 0.3 % (0.0-1.0); HEMATOCRIT 43.9 % (36.0-47.0); HEMOGLOBIN 14.7 g/dl (12.0-15.5); LYMPH # 0.8 10^3/uL (1.5-5.0); LYMPH % 19.2 % (24.0-44.0); MEAN CORPUSCULAR HEMOGLOBIN 29.6 pg (27.0-33.0); MEAN CORPUSCULAR HGB CONC 33.5 g/dl (32.0-36.5); MEAN CORPUSCULAR VOLUME 88.3 fl (80.0-96.0); MONO # 0.3 10^3/uL (0.0-0.8); MONO % 7.8 % (2.0-8.0); NEUTROPHILS # 2.9 10^3/uL (1.5-8.5); NEUTROPHILS % 72.2 % (36.0-66.0); PLATELET COUNT, AUTOMATED 141 10^3/uL (150-450); RED BLOOD COUNT 4.97 10^6/uL (4.00-5.40)
[2021-07-01 18:35] LABS: ALBUMIN 3.4 GM/DL (3.2-5.2); BILIRUBIN,TOTAL 0.4 MG/DL (0.2-1.0); CALCIUM LEVEL 8.5 MG/DL (8.5-10.1); CREATININE FOR GFR 1.68 MG/DL (0.55-1.30); GLOMERULAR FILTRATION RATE 33.2 (>51); MAGNESIUM LEVEL 1.8 MG/DL (1.8-2.4); POTASSIUM SERUM 4.4 MEQ/L (3.5-5.1); TOTAL PROTEIN 7.3 GM/DL (6.4-8.2)
[2021-07-01] MEDS ORDERED: AMLO1TAB24 PO (18:46)
[2021-07-01] MEDS ORDERED: HYDR12CA PO (18:53)
[2021-07-01] MEDS ORDERED: ASPI81TA26 PO (18:53)
[2021-07-01] MEDS ORDERED: HOME MED LIST COMPLETE! XX SCH (18:55)
[2021-07-01 19:37] LABS: INR 0.98; PROTHROMBIN TIME 13.3 SECONDS (12.7-14.5)
[2021-07-01 19:38] LABS: PARTIAL THROMBOPLASTIN TIME 30.2 SECONDS (25.9-37.0)
[2021-07-01 19:41] LABS: D-DIMER QUANT 1634.34 ng/ml (<500)
[2021-07-01 19:57] LABS: ALBUMIN 3.4 GM/DL (3.2-5.2); BILIRUBIN,DIRECT 0.2 MG/DL (0.0-0.2); BILIRUBIN,TOTAL 0.5 MG/DL (0.2-1.0); C REACTIVE PROTEIN QUANTITATIV 0.74 MG/DL (0.00-0.30); MAGNESIUM LEVEL 1.8 MG/DL (1.8-2.4); TOTAL PROTEIN 7.1 GM/DL (6.4-8.2); TROPONIN I 0.06 NG/ML (< 0.10)
[2021-07-01] MEDS ORDERED: REMDESIVIR 200 MG in NS 250 ML IV ONE (21:00)
[2021-07-01 21:35] VITALS: BP 111/64
[2021-07-01 22:00] VITALS: O2SAT 91
[2021-07-01] MEDS: dexameTHASONE 4 MG/ML 1ML VIAL (J1100 PER 1MG) IV SCH (22:07)
[2021-07-01] MEDS: cefTRIAXone SOD 2 GM in D5W MINI-BAG PLUS 50 ML IV SCH (22:11)
[2021-07-01] MEDS: ENOXAPARIN 40MG/0.4ML SYRINGE (J1650 PER 10MG) SC SCH (22:13)
[2021-07-01 23:00] VITALS: O2SAT 92
[2021-07-01] MEDS ORDERED: SODIUM CHLORIDE 0.9% INJ 10 ML SYR IV ONE (23:00)
[2021-07-01] MEDS: DOXYCYCLINE HYCLATE 100 MG in D5W MINI-BAG PLUS 100 ML IV SCH (23:06)
[2021-07-01] MEDS: ACETAMINOPHEN TAB 650MG DOSE (2X325MG) PO PRN (23:07)
[2021-07-02] VITALS (10 sets, daily range): BP systolic 102–124; BP diastolic 62–65; O2SAT 88–94
[2021-07-02] MEDS ORDERED: ALBUTEROL 90 MCG/ACT 8GM HFA INHALER INH PRN (07:15)
[2021-07-02 08:05] LABS: HEMOGLOBIN 12.9 g/dl (12.0-15.5); MEAN CORPUSCULAR HEMOGLOBIN 29.7 pg (27.0-33.0); MEAN CORPUSCULAR HGB CONC 33.1 g/dl (32.0-36.5); MEAN CORPUSCULAR VOLUME 89.9 fl (80.0-96.0); PLATELET COUNT, AUTOMATED 100 10^3/uL (150-450); RED BLOOD COUNT 4.34 10^6/uL (4.00-5.40); WHITE BLOOD COUNT 1.9 10^3/uL (4.0-10.0)
[2021-07-02 08:51] LABS: LYMPHOCYTES 17 % (16-44); MONOCYTES 4 % (0-5); NEUTROPHILS 74 % (28-66)
[2021-07-02 08:53] LABS: PLATELET ESTIMATE DECREASED (NORMAL)
[2021-07-02] MEDS: COMBIVENT RESPIMAT 100-20MCG INHALER 4GM INH SCH ×3 (09:15→19:38)
[2021-07-02 09:30] LABS: ALBUMIN 2.8 GM/DL (3.2-5.2); ALT/SGPT 66 U/L (12-78); BILIRUBIN,DIRECT < 0.1 MG/DL (0.0-0.2); BILIRUBIN,TOTAL 0.2 MG/DL (0.2-1.0); BLOOD UREA NITROGEN 38 MG/DL (7-18); CALCIUM LEVEL 8.5 MG/DL (8.5-10.1); CARBON DIOXIDE LEVEL 21 MEQ/L (21-32); CHLORIDE LEVEL 107 MEQ/L (98-107); CREATININE FOR GFR 1.46 MG/DL (0.55-1.30); GLUCOSE, FASTING 169 MG/DL (70-100); POTASSIUM SERUM 4.5 MEQ/L (3.5-5.1); SODIUM LEVEL 135 MEQ/L (136-145); TOTAL PROTEIN 6.8 GM/DL (6.4-8.2)
[2021-07-02] MEDS: ASPIRIN 81MG ENTERIC TABLET PO SCH (09:43)
[2021-07-02] MEDS: dexameTHASONE 4 MG/ML 1ML VIAL (J1100 PER 1MG) IV SCH (09:43)
[2021-07-02] MEDS: ENOXAPARIN 40MG/0.4ML SYRINGE (J1650 PER 10MG) SC SCH ×2 (09:44→20:05)
[2021-07-02] MEDS: DOXYCYCLINE HYCLATE 100 MG in D5W MINI-BAG PLUS 100 ML IV SCH ×2 (09:44→22:24)
[2021-07-02] MEDS: cefTRIAXone SOD 2 GM in D5W MINI-BAG PLUS 50 ML IV SCH (20:05)
[2021-07-02] MEDS: REMDESIVIR 100 MG in NS 250 ML IV SCH (21:01)
[2021-07-02] MEDS: ACETAMINOPHEN TAB 650MG DOSE (2X325MG) PO PRN (21:07)
[2021-07-02] MEDS: SODIUM CHLORIDE 0.9% INJ 10 ML SYR IV SCH (22:25)
[2021-07-03] MEDS: COMBIVENT RESPIMAT 100-20MCG INHALER 4GM INH SCH ×4 (02:55→19:58)
[2021-07-03 06:00] VITALS: BP 115/68
[2021-07-03 07:00] LABS: BASO % 0.2 % (0.0-1.0); HEMATOCRIT 40.1 % (36.0-47.0); HEMOGLOBIN 13.5 g/dl (12.0-15.5); LYMPH # 0.6 10^3/uL (1.5-5.0); LYMPH % 14.8 % (24.0-44.0); MEAN CORPUSCULAR HEMOGLOBIN 30.1 pg (27.0-33.0); MEAN CORPUSCULAR HGB CONC 33.7 g/dl (32.0-36.5); MEAN CORPUSCULAR VOLUME 89.3 fl (80.0-96.0); MONO # 0.4 10^3/uL (0.0-0.8); MONO % 10.1 % (2.0-8.0); NEUTROPHILS % 74.4 % (36.0-66.0); PLATELET COUNT, AUTOMATED 121 10^3/uL (150-450); RED BLOOD COUNT 4.49 10^6/uL (4.00-5.40); WHITE BLOOD COUNT 4.1 10^3/uL (4.0-10.0)
[2021-07-03 07:13] LABS: INR 1.03
[2021-07-03 07:14] LABS: PARTIAL THROMBOPLASTIN TIME 33.4 SECONDS (25.9-37.0)
[2021-07-03 07:49] LABS: ALBUMIN 2.8 GM/DL (3.2-5.2); ALT/SGPT 59 U/L (12-78); BILIRUBIN,DIRECT < 0.1 MG/DL (0.0-0.2); BILIRUBIN,TOTAL 0.2 MG/DL (0.2-1.0); BLOOD UREA NITROGEN 48 MG/DL (7-18); CALCIUM LEVEL 8.5 MG/DL (8.5-10.1); CARBON DIOXIDE LEVEL 23 MEQ/L (21-32); CHLORIDE LEVEL 109 MEQ/L (98-107); CPK CREATINE PHOSPHOKINASE 1361 U/L (26-192); CREATININE FOR GFR 1.23 MG/DL (0.55-1.30); FERRITIN 1157 NG/ML (8-252); GLOMERULAR FILTRATION RATE 47.6 (>51); GLUCOSE, FASTING 137 MG/DL (70-100); LDH LACTATE DEHYDROGENASE 430 U/L (84-246); MAGNESIUM LEVEL 1.9 MG/DL (1.8-2.4); NT-PRO BNP 159 PG/ML (<125); POTASSIUM SERUM 4.1 MEQ/L (3.5-5.1); SODIUM LEVEL 139 MEQ/L (136-145); TOTAL PROTEIN 6.8 GM/DL (6.4-8.2)
[2021-07-03 08:07] VITALS: O2SAT 96
[2021-07-03] MEDS: DOXYCYCLINE HYCLATE 100 MG in D5W MINI-BAG PLUS 100 ML IV SCH (09:11)
[2021-07-03] MEDS: ENOXAPARIN 40MG/0.4ML SYRINGE (J1650 PER 10MG) SC SCH ×2 (09:11→20:10)
[2021-07-03] MEDS: dexameTHASONE 4 MG/ML 1ML VIAL (J1100 PER 1MG) IV SCH (09:11)
[2021-07-03] MEDS: ASPIRIN 81MG ENTERIC TABLET PO SCH (09:11)
[2021-07-03] MEDS: ACETAMINOPHEN TAB 650MG DOSE (2X325MG) PO PRN (11:24)
[2021-07-03 14:00] VITALS: BP 124/70
[2021-07-03] MEDS: NICOTINE 14 MG/24 HR TRANSDERMAL TD SCH (14:31)
[2021-07-03 17:07] LABS: HEPATITIS C QUANTITATION HCV Not Detected IU/mL (.)
[2021-07-03 20:00] VITALS: BP 135/80
[2021-07-03] MEDS: REMDESIVIR 100 MG in NS 250 ML IV SCH (20:10)
[2021-07-03] MEDS: SODIUM CHLORIDE 0.9% INJ 10 ML SYR IV SCH (20:10)
[2021-07-03] MEDS ORDERED: RAMELTEON 8 MG TAB (ROZEREM) PO SCH (21:00)
[2021-07-04] MEDS: COMBIVENT RESPIMAT 100-20MCG INHALER 4GM INH SCH ×2 (02:00→07:31)
[2021-07-04 05:00] VITALS: BP 138/81
[2021-07-04 07:03] LABS: BASO % 0.2 % (0.0-1.0); HEMATOCRIT 40.7 % (36.0-47.0); HEMOGLOBIN 13.5 g/dl (12.0-15.5); LYMPH # 0.6 10^3/uL (1.5-5.0); LYMPH % 14.1 % (24.0-44.0); MEAN CORPUSCULAR HEMOGLOBIN 29.5 pg (27.0-33.0); MEAN CORPUSCULAR HGB CONC 33.2 g/dl (32.0-36.5); MEAN CORPUSCULAR VOLUME 89.1 fl (80.0-96.0); MONO # 0.5 10^3/uL (0.0-0.8); MONO % 11.1 % (2.0-8.0); NEUTROPHILS # 3.2 10^3/uL (1.5-8.5); NEUTROPHILS % 73.7 % (36.0-66.0); PLATELET COUNT, AUTOMATED 154 10^3/uL (150-450); RED BLOOD COUNT 4.57 10^6/uL (4.00-5.40); WHITE BLOOD COUNT 4.4 10^3/uL (4.0-10.0)
[2021-07-04 07:31] LABS: CALCIUM LEVEL 8.3 MG/DL (8.5-10.1); CREATININE FOR GFR 1.15 MG/DL (0.55-1.30); GLOMERULAR FILTRATION RATE 51.4 (>51); MAGNESIUM LEVEL 1.9 MG/DL (1.8-2.4)
[2021-07-04] MEDS: ASPIRIN 81MG ENTERIC TABLET PO SCH (09:03)
[2021-07-04] MEDS: dexameTHASONE 4 MG/ML 1ML VIAL (J1100 PER 1MG) IV SCH (09:03)
[2021-07-04] MEDS: NICOTINE 14 MG/24 HR TRANSDERMAL TD SCH (09:04)
[2021-07-04] MEDS: ENOXAPARIN 40MG/0.4ML SYRINGE (J1650 PER 10MG) SC SCH (09:04)
[2021-07-04] MEDS ORDERED: PRED20TA PO (09:31)
[2021-07-04 21:07] LABS: BODY FLUID CULTURE Not indicated. (.); LEGIONELLA ANTIGEN URINE Negative (Negative); MYCOPLASMA PNEUMONIAE IgG 697 U/mL (0-99); MYCOPLASMA PNEUMONIAE IgM <770 U/mL (0-769); ORGANISM ID Not indicated. (.); SPECIMEN SOURCE Urine (.); URINE STREP PNEUMONIAE ANTIGEN Negative (Negative)
== END 2021-07-04 11:41 | disposition home or self-care (01) | DRG 137 ==
LOC: M ED 16:04 → M ED INP 18:36 → ENRESERV 19:37 → M 4MAIN 21:28
PROVIDERS: ADMIT Family Medicine; ATTEND Family Medicine
DX: U07.1 COVID-19 (principal); J12.82 Pneumonia due to coronavirus disease 2019; J44.9 Chronic obstructive pulmonary disease, unspecified; I10 Essential (primary) hypertension; B18.2 Chronic viral hepatitis C; F11.90 Opioid use, unspecified, uncomplicated; Z79.82 Long term (current) use of aspirin; Z79.899 Other long term (current) drug therapy; Z88.5 Allergy status to narcotic agent; E78.5 Hyperlipidemia, unspecified; K21.9 Gastro-esophageal reflux disease without esophagitis; F41.9 Anxiety disorder, unspecified

== ENCOUNTER → 2021-11-20 | Outpatient (REF) | payer MEDICARE, OTHER ==
[~2021-11-20] MED LIST changes: +AMLO1TAB24 PO; +ASPI81TA26 PO; +PRED20TA PO
[2021-11-21 11:40] LABS: BASO # 0.1 10^3/uL (0.0-0.2); BASO % 0.9 % (0.0-1.0); EOS # 0.2 10^3/uL (0.0-0.5); EOS % 2.4 % (0.0-3.0); HEMATOCRIT 44.9 % (36.0-47.0); HEMOGLOBIN 14.7 g/dl (12.0-15.5); LYMPH % 20.9 % (24.0-44.0); MEAN CORPUSCULAR HEMOGLOBIN 29.3 pg (27.0-33.0); MEAN CORPUSCULAR HGB CONC 32.7 g/dl (32.0-36.5); MEAN CORPUSCULAR VOLUME 89.6 fl (80.0-96.0); MONO # 0.6 10^3/uL (0.0-0.8); MONO % 5.7 % (2.0-8.0); NEUTROPHILS # 6.8 10^3/uL (1.5-8.5); NEUTROPHILS % 69.9 % (36.0-66.0); PLATELET COUNT, AUTOMATED 285 10^3/uL (150-450); RED BLOOD COUNT 5.01 10^6/uL (4.00-5.40); WHITE BLOOD COUNT 9.7 10^3/uL (4.0-10.0)
[2021-11-21 13:20] LABS: BILIRUBIN,TOTAL 0.2 MG/DL (0.2-1.0); CALCIUM LEVEL 9.5 MG/DL (8.8-10.2); CHOLESTEROL RISK RATIO 5.758 (<5); CREATININE FOR GFR 1.17 MG/DL (0.55-1.30); GLOMERULAR FILTRATION RATE 50.2 (>45); MAGNESIUM LEVEL 2.1 MG/DL (1.8-2.4); THYROID STIMULATING HORMONE 1.62 uIU/ML (0.358-3.740); TOTAL PROTEIN 7.4 GM/DL (6.4-8.2)
[2021-11-21 14:58] LABS: HEMOGLOBIN A1c 6.1 %
== END ==
LOC: M SFHCCLAY 15:05
PROVIDERS: ATTEND Family Medicine
DX: E78.2 Mixed hyperlipidemia (principal); I10 Essential (primary) hypertension; R73.01 Impaired fasting glucose; K21.9 Gastro-esophageal reflux disease without esophagitis

== ENCOUNTER → 2021-11-22 | Outpatient (CLI) | payer OTHER | LOC: M RAD 17:05 | PROVIDERS: ATTEND Physician Assistant | DX: R91.8 Other nonspecific abnormal finding of lung field (principal) ==

== ENCOUNTER → 2022-07-12 | Outpatient (REF) | payer MEDICARE, OTHER ==
[2022-07-12 15:01] LABS: BASO # 0.1 10^3/uL (0.0-0.2); BASO % 0.8 % (0.0-1.0); EOS # 0.3 10^3/uL (0.0-0.5); EOS % 3.8 % (0.0-3.0); HEMATOCRIT 44.1 % (36.0-47.0); HEMOGLOBIN 14.4 g/dl (12.0-15.5); LYMPH # 2.1 10^3/uL (1.5-5.0); MEAN CORPUSCULAR HEMOGLOBIN 30.5 pg (27.0-33.0); MEAN CORPUSCULAR HGB CONC 32.7 g/dl (32.0-36.5); MEAN CORPUSCULAR VOLUME 93.4 fl (80.0-96.0); MONO # 0.5 10^3/uL (0.0-0.8); MONO % 5.7 % (2.0-8.0); NEUTROPHILS # 5.6 10^3/uL (1.5-8.5); NEUTROPHILS % 65.4 % (36.0-66.0); PLATELET COUNT, AUTOMATED 282 10^3/uL (150-450); RED BLOOD COUNT 4.72 10^6/uL (4.00-5.40); WHITE BLOOD COUNT 8.6 10^3/uL (4.0-10.0)
[2022-07-12 15:52] LABS: ALBUMIN 3.7 GM/DL (3.2-5.2); ALT/SGPT 16 U/L (12-78); BILIRUBIN,TOTAL 0.5 MG/DL (0.2-1.0); BLOOD UREA NITROGEN 13 MG/DL (7-18); CALCIUM LEVEL 9.1 MG/DL (8.8-10.2); CARBON DIOXIDE LEVEL 29 MEQ/L (21-32); CHLORIDE LEVEL 104 MEQ/L (98-107); CREATININE FOR GFR 1.07 MG/DL (0.55-1.30); GLOMERULAR FILTRATION RATE 55.7 (>45); GLUCOSE, FASTING 115 MG/DL (70-100); POTASSIUM SERUM 4.1 MEQ/L (3.5-5.1); RHEUMATOID FACTOR QUANT < 10.0 IU/ML (<15.0); SODIUM LEVEL 139 MEQ/L (136-145); TOTAL PROTEIN 6.8 GM/DL (6.4-8.2)
[2022-07-12 15:57] LABS: ERYTHROCYTE SEDIMENTATION RATE 11 mm/hr (0-30)
[2022-07-12 16:20] LABS: TOTAL 25(OH) VITAMIN D 11.9 NG/ML (30.0-100.0)
[2022-07-14 13:07] LABS: FOLATE 11.2 ng/mL (>3.0); VITAMIN B12 LEVEL 365 pg/mL (232-1245)
== END ==
LOC: M LABDRAWC 11:47
PROVIDERS: ATTEND Psychiatry & Neurology Neurology
DX: R41.89 Other symptoms and signs involving cognitive functions and awareness (principal); Z79.899 Other long term (current) drug therapy

== ENCOUNTER → 2022-11-01 | Outpatient (CLI) | payer MEDICARE, OTHER | LOC: M CLY 15:23 | PROVIDERS: ATTEND Family Medicine | DX: M17.12 Unilateral primary osteoarthritis, left knee (principal) ==

== ENCOUNTER → 2022-11-29 | Outpatient (REF) | payer MEDICARE, OTHER ==
[2022-11-29 17:33] LABS: BASO # 0.1 10^3/uL (0.0-0.2); BASO % 1.2 % (0.0-1.0); EOS # 0.5 10^3/uL (0.0-0.5); EOS % 4.4 % (0.0-3.0); HEMATOCRIT 47.4 % (36.0-47.0); HEMOGLOBIN 15.1 g/dl (12.0-15.5); LYMPH # 2.6 10^3/uL (1.5-5.0); LYMPH % 24.7 % (24.0-44.0); MEAN CORPUSCULAR HEMOGLOBIN 29.3 pg (27.0-33.0); MEAN CORPUSCULAR HGB CONC 31.9 g/dl (32.0-36.5); MEAN CORPUSCULAR VOLUME 91.9 fl (80.0-96.0); MONO # 0.6 10^3/uL (0.0-0.8); MONO % 5.9 % (2.0-8.0); NEUTROPHILS # 6.6 10^3/uL (1.5-8.5); NEUTROPHILS % 63.3 % (36.0-66.0); PLATELET COUNT, AUTOMATED 302 10^3/uL (150-450); RED BLOOD COUNT 5.16 10^6/uL (4.00-5.40); WHITE BLOOD COUNT 10.4 10^3/uL (4.0-10.0)
[2022-11-29 17:36] LABS: C REACTIVE PROTEIN QUANTITATIV 0.6 MG/DL (<1.0)
[2022-11-29 17:38] LABS: ALBUMIN 3.8 G/DL (3.2-5.2); BILIRUBIN,TOTAL 0.3 MG/DL (0.3-1.2); CALCIUM LEVEL 8.9 MG/DL (8.3-10.6); CHOLESTEROL RISK RATIO 5.38 (<5); CREATININE FOR GFR 1.11 MG/DL (0.55-1.30); GLOMERULAR FILTRATION RATE 53.2 (>45); HDL CHOLESTEROL 31.2 MG/DL (>40); LDL CHOLESTEROL 86.8 MG/DL (<100); POTASSIUM SERUM 3.9 MMOL/L (3.5-5.1); TOTAL PROTEIN 7.1 G/DL (5.7-8.2)
[2022-11-29 17:40] LABS: URIC ACID 4.7 MG/DL (3.1-7.8)
[2022-11-29 17:53] LABS: ERYTHROCYTE SEDIMENTATION RATE 21 mm/hr (0-30)
[2022-11-29 18:45] LABS: HEMOGLOBIN A1c 6.1 % (4.0-6.0)
[2022-12-02 19:07] LABS: ANA (HEP2) Negative (.); CYCLIC CITRULLINATED PEPTIDE 5 units (0-19)
== END ==
LOC: M SFHCCLAY 13:54
PROVIDERS: ATTEND Family Medicine
DX: I10 Essential (primary) hypertension (principal); E78.2 Mixed hyperlipidemia; R73.01 Impaired fasting glucose; L93.0 Discoid lupus erythematosus

== ENCOUNTER → 2022-12-06 | Outpatient (CLI) | payer MEDICARE, OTHER | LOC: M RAD 09:22 | PROVIDERS: ATTEND Physician Assistant | DX: Z12.2 Encounter for screening for malignant neoplasm of respiratory organs (principal); F17.218 Nicotine dependence, cigarettes, with other nicotine-induced disorders; R91.8 Other nonspecific abnormal finding of lung field ==

== ENCOUNTER → 2023-12-04 | Outpatient (REF) | payer MEDICARE, OTHER ==
[2023-12-04 19:04] LABS: HEMATOCRIT 47.1 % (36.0-47.0); HEMOGLOBIN 15.5 g/dl (12.0-15.5); MEAN CORPUSCULAR HEMOGLOBIN 30.3 pg (27.0-33.0); MEAN CORPUSCULAR HGB CONC 32.9 g/dl (32.0-36.5); PLATELET COUNT, AUTOMATED 303 10^3/uL (150-450); RED BLOOD COUNT 5.12 10^6/uL (4.00-5.40); WHITE BLOOD COUNT 7.8 10^3/uL (4.0-10.0)
[2023-12-04 19:24] LABS: HEMOGLOBIN A1c 5.7 % (4.0-6.0)
[2023-12-04 19:36] LABS: ALKALINE PHOSPHATASE 83 U/L (46-116); ALT/SGPT 10 U/L (7.0-40); AST/SGOT < 8 U/L (<34); BILIRUBIN,TOTAL 0.3 MG/DL (0.3-1.2); BLOOD UREA NITROGEN 14 MG/DL (9-23); CALCIUM LEVEL 9.6 MG/DL (8.3-10.6); CARBON DIOXIDE LEVEL 28 MMOL/L (20-31); CHLORIDE LEVEL 105 MMOL/L (98-107); CHOLESTEROL LEVEL 184 MG/DL (<200); CHOLESTEROL RISK RATIO 5.97 (<5); GLOMERULAR FILTRATION RATE 53.6 (>45); GLUCOSE, FASTING 131 MG/DL (74-106); HDL CHOLESTEROL 30.8 MG/DL (>40); LDL CHOLESTEROL 121.2 MG/DL (<100); NON-HDL-C 153.2 MG/DL; POTASSIUM SERUM 4.1 MMOL/L (3.5-5.1); SODIUM LEVEL 139 MMOL/L (136-145); TOTAL PROTEIN 7.4 G/DL (5.7-8.2); TRIGLYCERIDES LEVEL 160 MG/DL (<150)
== END ==
LOC: M SFHCCLAY 14:00
PROVIDERS: ATTEND Family Medicine
DX: I10 Essential (primary) hypertension (principal); R73.01 Impaired fasting glucose; E78.2 Mixed hyperlipidemia

== ENCOUNTER → 2024-08-05 | Outpatient (REF) | payer MEDICARE, OTHER ==
[2024-08-05 17:36] LABS: HEMATOCRIT 49.5 % (36.0-47.0); HEMOGLOBIN 16.9 g/dl (12.0-15.5); MEAN CORPUSCULAR HEMOGLOBIN 30.7 pg (27.0-33.0); MEAN CORPUSCULAR HGB CONC 34.1 g/dl (32.0-36.5); MEAN CORPUSCULAR VOLUME 89.8 fl (80.0-96.0); PLATELET COUNT, AUTOMATED 341 10^3/uL (150-450); RED BLOOD COUNT 5.51 10^6/uL (4.00-5.40); WHITE BLOOD COUNT 8.6 10^3/uL (4.0-10.0)
[2024-08-05 18:08] LABS: FREE T4 1.37 NG/DL (0.89-1.76)
[2024-08-05 18:14] LABS: ALBUMIN 4.1 G/DL (3.2-5.2); ALKALINE PHOSPHATASE 98 U/L (46-116); ALT/SGPT < 9 U/L (7.0-40); AST/SGOT < 8 U/L (<34); BILIRUBIN,TOTAL 0.6 MG/DL (0.3-1.2); BLOOD UREA NITROGEN 14 MG/DL (9-23); CALCIUM LEVEL 10.3 MG/DL (8.3-10.6); CARBON DIOXIDE LEVEL 31 MMOL/L (20-31); CHLORIDE LEVEL 102 MMOL/L (98-107); CREATININE FOR GFR 1.15 MG/DL (0.55-1.30); GLOMERULAR FILTRATION RATE 50.7 (>45); GLUCOSE, FASTING 106 MG/DL (74-106); POTASSIUM SERUM 4.8 MMOL/L (3.5-5.1); SODIUM LEVEL 134 MMOL/L (136-145); TOTAL PROTEIN 7.3 G/DL (5.7-8.2)
[2024-08-05 18:58] LABS: HEMOGLOBIN A1c 5.7 % (4.0-6.0)
== END ==
LOC: M SFHCCLAY 11:33
PROVIDERS: ATTEND Family Medicine
DX: R73.01 Impaired fasting glucose (principal); I10 Essential (primary) hypertension; R63.4 Abnormal weight loss

== ENCOUNTER → 2024-10-29 | Outpatient (CLI) | payer MEDICARE, OTHER | LOC: M PLARAD 09:00 | PROVIDERS: ATTEND Family Medicine | DX: R41.3 Other amnesia (principal); R29.6 Repeated falls; R94.02 Abnormal brain scan ==

== ENCOUNTER → 2025-01-04 | Outpatient (REF) | payer MEDICARE, OTHER ==
[2025-01-04 20:34] LABS: HEMATOCRIT 42.5 % (36.0-47.0); MEAN CORPUSCULAR HEMOGLOBIN 30.8 pg (27.0-33.0); MEAN CORPUSCULAR HGB CONC 32.9 g/dl (32.0-36.5); MEAN CORPUSCULAR VOLUME 93.4 fl (80.0-96.0); PLATELET COUNT, AUTOMATED 228 10^3/uL (150-450); RED BLOOD COUNT 4.55 10^6/uL (4.00-5.40); WHITE BLOOD COUNT 6.8 10^3/uL (4.0-10.0)
[2025-01-04 21:03] LABS: HEMOGLOBIN A1c 5.5 % (4.0-6.0)
[2025-01-04 21:39] LABS: BILIRUBIN,TOTAL 0.4 MG/DL (0.3-1.2); CALCIUM LEVEL 9.3 MG/DL (8.3-10.6); CHOLESTEROL RISK RATIO 3.91 (<5); GLOMERULAR FILTRATION RATE 59.6 (>45); HDL CHOLESTEROL 38.8 MG/DL (>40); MAGNESIUM LEVEL 2.1 MG/DL (1.8-2.4); NON-HDL-C 113.2 MG/DL; POTASSIUM SERUM 4.2 MMOL/L (3.5-5.1); TOTAL PROTEIN 7.2 G/DL (5.7-8.2)
== END ==
LOC: M SFHCCLAY 11:59
PROVIDERS: ATTEND Family Medicine
DX: R73.01 Impaired fasting glucose (principal); I10 Essential (primary) hypertension; R63.4 Abnormal weight loss; E78.2 Mixed hyperlipidemia; K21.9 Gastro-esophageal reflux disease without esophagitis

== ENCOUNTER → 2025-05-10 | Outpatient (REF) | payer MEDICARE, OTHER | LOC: M SFHCCLAY 15:48 | PROVIDERS: ATTEND Family Medicine | DX: Z53.9 Procedure and treatment not carried out, unspecified reason (principal) ==